=== PATIENT | male | born 1955 | race Caucasian/White ===

== ENCOUNTER 2017-03-23 16:23 | Emergency (ER) | payer BC ==
[2017-03-23] MEDS ORDERED: Albuterol/Ipratropium NEB.SOL* Albuterol 2.5 MG/Ipratropium 0.5 MG 3 ML INH ONE (17:44)
[2017-03-23] MEDS ORDERED: predniSONE TAB* 20 MG PO ONE (17:44)
--- NOTE | 2017-03-23 17:45 | UC ---
Respiratory Complaint HPI - History of Current Complaint Chief Complaint: UCRespiratory Stated Complaint: UPPER RESPIRATORY COMPLAINT Time Seen by Provider: 03/23/17 17:36 - Allergies/Home Medications Allergies/Adverse Reactions: Allergies Allergy/AdvReac Type Severity Reaction Status Date / Time Tetracycline Allergy See Comment Verified 03/23/17 16:45 Home Medications: Home Medications Acetylcysteine INHALATION KESHIA* [Mucomyst INHALATION KESHIA*] 10 % QPM 03/23/17 [ History Confirmed 03/23/17] Albuterol/Ipratropium NEB.KESHIA* [Duoneb (Albuterol 2.5 MG/Ipratropium 0.5 MG)] 1 inh QPM 03/23/17 [History Confirmed 03/23/17] Aspirin EC Low Dose* [Ecotrin EC Low Dose 81 MG*] 1 tab QAM 03/23/17 [History Confirmed 03/23/17] Carvedilol TAB* [Coreg TAB*] 1 tab BID 03/23/17 [History Confirmed 03/23/17] Clopidogrel TAB* [Plavix TAB*] 75 mg PO QAM 03/23/17 [History Confirmed 03/23/17 ] Fluticasone-Salmeterol 250-50* [Advair Diskus 250-50*] 1 puff QAM 03/23/17 [ History Confirmed 03/23/17] Hydrochlorothiazide TAB* [Hydrodiuril TAB*] 25 mg PO QAM 03/23/17 [History Confirmed 03/23/17] Montelukast Sodium TAB* [Singulair TAB*] 10 mg PO QAM 03/23/17 [History Confirmed 03/23/17] Oxygen 2 PRN 03/23/17 [History] Pravastatin (NF) [Pravachol (NF)] 1 tab QPM 03/23/17 [History Confirmed 03/23/17 ] Roflumilast [Daliresp] 1 tab QPM 03/23/17 [History Confirmed 03/23/17] Sucralfate [Carafate] 1 gm QID 03/23/17 [History Confirmed 03/23/17] Tiotropium CAP.INH* [Spiriva CAP.INH*] 1 cap QAM 03/23/17 [History Confirmed ] Valsartan 80 mg PO BID 03/23/17 [History Confirmed 03/23/17] amLODIPine TAB* [Norvasc 5 mg TAB*] 10 mg PO DAILY 03/23/17 [History Confirmed 03/23/17] guaiFENesin ER TAB [Mucinex*] 1,200 mg PO BID 03/23/17 [History Confirmed ] PMH/Surg Hx/FS Hx/Imm Hx - Surgical History Surgical History: Yes Surgery Procedure, Year, and Place: Stentsx2. RIGHT facial reconstruction surgery from fall-plate placed - Social History Alcohol Use: None Substance Use Type: None Smoking Status (MU): Former Smoker Type: Cigars - Immunization History Most Recent Influenza Vaccination: NOT YET 2017 Physical Exam Vital Signs: Initial Vital Signs Temp 98.9 F 03/23/17 16:45 Pulse 62 03/23/17 16:45 Resp 25 03/23/17 16:45 BP 139/68 03/23/17 16:45 Pulse Ox 98 03/23/17 16:45 UC Diagnostic Evaluation - Laboratory O2 Sat by Pulse Oximetry: 96
[2017-03-23 18:57] VITALS: BP 128/68
--- NOTE | 2017-03-23 18:59 | RAD ---
INDICATION: 2 weeks of shortness of breath with productive cough COMPARISON: Chest x-ray dated July 10, 2005 TECHNIQUE: PA and lateral views of the chest were obtained. FINDINGS: The clinical research monitor is noted overlying the left upper chest. The heart and mediastinum are normal in size and contour. Linear density at the right lower lung as a morphologic appearance most consistent with atelectasis. The lungs are otherwise lungs are grossly clear. There is no evidence of large pleural effusion. Visualized bones are normal for the patient's age. There is no radiographic evidence of free air beneath the diaphragm IMPRESSION: LINEAR DENSITY AT THE RIGHT LOWER LUNG IS AN APPEARANCE MOST CONSISTENT WITH ATELECTASIS IN THIS OTHERWISE NONACUTE CHEST X-RAY.
== END 2017-03-23 18:58 | disposition home or self-care (01) ==
LOC: UCCORT 16:23
DX: J98.9 Respiratory disorder, unspecified (principal); Z87.891 Personal history of nicotine dependence
CPT/HCPCS: 71020; 99203; A9270-GY; G0463; J7512

== ENCOUNTER 2017-10-11 07:15 | Emergency (ER) | payer BC ==
[2017-10-11 07:35] VITALS: BP 122/65
--- NOTE | 2017-10-11 07:47 | UC ---
Respiratory Complaint HPI - HPI Summary HPI Summary: 61 yo male with cough x 1 week worse past day or two fever/chills and SOB no n/v/d no nasal congestion hx COPD uses O2 prn - History of Current Complaint Chief Complaint: UCRespiratory Stated Complaint: FEVER, COUGH, SOB Time Seen by Provider: 10/11/17 07:39 Hx Obtained From: Patient Onset/Duration: Sudden Onset Timing: Constant Severity Initially: Mild Severity Currently: Moderate Pain Intensity: 4 Pain Scale Used: 0-10 Numeric Character: Cough: Productive Aggravating Factors: Nothing Associated Signs And Symptoms: Positive: Dyspnea, Fever, Chills - Allergies/Home Medications Allergies/Adverse Reactions: Allergies Allergy/AdvReac Type Severity Reaction Status Date / Time Tetracyclines Allergy Anaphylatic Verified 10/11/17 07:28 Shock Home Medications: Home Medications Arformoterol (NF) [Brovana(NF)] 15 mcg INH BID 10/11/17 [History Confirmed 10/11] Budesonide NEB* [Pulmicort NEB*] 0.5 mg INH BID 10/11/17 [History Confirmed 06/18] Ipratropium 0.5MG/2.5ML NEB* [Atrovent 0.5 MG NEB.KESHIA*] 0.5 mg INH Q6H PRN 10/11 [History Confirmed 10/11/17] Pantoprazole TAB (NF) [Protonix TAB (NF)] 20 mg PO DAILY 10/11/17 [History Confirmed 10/11/17] Psyllium Husk [Metamucil] 2 tab PO DAILY 10/11/17 [History Confirmed 10/11/17] Sodium Chloride For Inhalation [Hyper-Sony] 4 ml IH DAILY 10/11/17 [History Confirmed 10/11/17] Trazodone HCl 50 mg PO DAILY 10/11/17 [History Confirmed 10/11/17] PMH/Surg Hx/FS Hx/Imm Hx Previously Healthy: Yes Cardiovascular History: Cardiac Disease, Myocardial Infarction Respiratory History: COPD, Bronchitis, Pneumonia - Surgical History Surgical History: Yes Surgery Procedure, Year, and Place: Stentsx2. RIGHT facial reconstruction surgery from fall-plate placed - Family History Known Family History: Positive: Hypertension - Social History Alcohol Use: None Substance Use Type: None Smoking Status (MU): Current Some Day Smoker Type: Cigars Amount Used/How Often: occasional use - Immunization History Most Recent Influenza Vaccination: NOT YET 2017 Review of Systems Constitutional: Fever, Chills, Fatigue Skin: Negative Eyes: Negative ENT: Negative Respiratory: Shortness Of Breath, Cough Cardiovascular: Negative Gastrointestinal: Negative Genitourinary: Negative Motor: Negative Neurovascular: Negative Musculoskeletal: Negative Neurological: Negative Psychological: Negative Is Patient Immunocompromised?: No All Other Systems Reviewed And Are Negative: Yes Physical Exam Triage Information Reviewed: Yes Appearance: Well-Appearing, No Pain Distress, Well-Nourished Vital Signs: Initial Vital Signs Temp 98.7 F 10/11/17 07:29 Pulse 68 10/11/17 07:29 Resp 20 10/11/17 07:29 BP 122/65 10/11/17 07:29 Pulse Ox 95 10/11/17 07:29 Vital Signs Reviewed: Yes Eyes: Positive: Conjunctiva Clear ENT: Positive: Hearing grossly normal. Negative: Nasal congestion, Nasal drainage, Trismus, Muffled voice, Hoarse voice Neck: Positive: Supple, Nontender, No Lymphadenopathy Respiratory: Positive: No respiratory distress, No accessory muscle use, Rhonchi , Wheezing Cardiovascular: Positive: RRR, No Murmur Musculoskeletal: Positive: ROM Intact, No Edema Neurological: Positive: Alert Psychological Exam: Normal Skin Exam: Normal UC Diagnostic Evaluation - Laboratory O2 Sat by Pulse Oximetry: 95 - normal - Radiology Xray Interpretation: Positive (See Comments) - 1. THERE HAS BEEN PROGRESSIVE ATELECTASIS OF THE RIGHT MIDDLE LOBE, NOW WITH COMPLETE Radiology Interpretation Completed By: Radiologist Re-Evaluation - Re-Evaluation First Eval Re-Evaluation Time: 08:20 Change: Unchanged Respiratory Course/Dx - Course Course Of Treatment: pt advised of or radiologists recommendation. he declined transfer to ER. he states he will call his pulmonaligist to see if they will do a bronch or CT with contrast. Aware this may be due to CA - Differential Dx/Diagnosis Provider Diagnoses: complete atelectasis of RML. bronchospasm Discharge - Sign-Out/Discharge Documenting (check all that apply): Discharge - Discharge Plan Condition: Stable Disposition: HOME Prescriptions: Amoxicillin/Clavulanate TAB* [Augmentin TAB 875*] 875 mg PO BID #14 tab predniSONE [Deltasone] 40 mg PO DAILY #10 tab Patient Education Materials: Bronchospasm (ED), Atelectasis (ED) Forms: *Work Release Referrals: Non Staff,Doctor [Primary Care Provider] - Additional Instructions: contact your claim specialist today your xr reading is below: 1. THERE HAS BEEN PROGRESSIVE ATELECTASIS OF THE RIGHT MIDDLE LOBE, NOW WITH COMPLETE ATELECTASIS OF THE RIGHT MIDDLE LOBE. CONSIDER FURTHER EVALUATION WITH CONTRAST- ENHANCED CHEST TO EXCLUDE OBSTRUCTING LESION. 2. COPD - Billing Disposition and Condition Condition: STABLE Disposition: HOME
[2017-10-11] MEDS ORDERED: Albuterol 2.5 MG/3 ML NEB.SOL* (0.083%) INH ONE (07:56)
[2017-10-11] MEDS ORDERED: Ipratropium 0.5MG/2.5ML NEB* 0.5 MG/2.5 ML NEB.SOLN INH ONE (07:56)
--- NOTE | 2017-10-11 08:05 | RAD ---
HISTORY: Cough, fever COMPARISONS: March 27, 2017 VIEWS: 4: Frontal dual-energy and lateral views of the chest. FINDINGS: CARDIOMEDIASTINAL SILHOUETTE: The coronary stent is noted. YOAN: The yoan are normal. PLEURA: The costophrenic angles are sharp. No pleural abnormalities are noted. LUNG PARENCHYMA: There is volume loss in opacification of the right middle lobe. There is hyperinflation. ABDOMEN: The upper abdomen is clear. There is no subphrenic gas. BONES AND SOFT TISSUES: No bone or soft tissue abnormalities are noted. OTHER: None. IMPRESSION: 1. THERE HAS BEEN PROGRESSIVE ATELECTASIS OF THE RIGHT MIDDLE LOBE, NOW WITH COMPLETE ATELECTASIS OF THE RIGHT MIDDLE LOBE. CONSIDER FURTHER EVALUATION WITH CONTRAST-ENHANCED CHEST TO EXCLUDE OBSTRUCTING LESION. 2. COPD.
== END 2017-10-11 08:40 | disposition home or self-care (01) ==
LOC: UCCORT 07:15
DX: J98.11 Atelectasis (principal); J98.01 Acute bronchospasm; J44.9 Chronic obstructive pulmonary disease, unspecified; F17.290 Nicotine dependence, other tobacco product, uncomplicated; Z88.3 Allergy status to other anti-infective agents
CPT/HCPCS: 71046; 99212; G0463

== ENCOUNTER 2018-04-27 17:51 | Emergency (ER) | payer BC ==
[2018-04-27 18:34] VITALS: BP 135/64
--- NOTE | 2018-04-27 18:53 | UC ---
Ear Complaint HPI - HPI Summary HPI Summary: C/O left ear pain since Sunday. Gradually getting worse. Pain radiating from ear down into the cheek. - History of Current Complaint Chief Complaint: UCEar Stated Complaint: EAR PAIN Time Seen by Provider: 04/27/18 18:43 Hx Obtained From: Patient Onset/Duration: Gradual Onset, Lasting Days - 4 Severity Initially: Mild Severity Currently: Severe Pain Intensity: 9 Aggravating Factors: Other - chewing. Associated Signs/Symptoms: Positive: Hearing Loss Related History: Seasonal Allergies - Allergies/Home Medications Allergies/Adverse Reactions: Allergies Allergy/AdvReac Type Severity Reaction Status Date / Time Tetracyclines Allergy Anaphylatic Verified 03/10/18 07:52 Shock Home Medications: Home Medications Moxifloxacin HCl 400 mg PO DAILY 04/27/18 [History Confirmed 04/27/18] PMH/Surg Hx/FS Hx/Imm Hx Respiratory History: COPD - Surgical History Surgical History: Yes Surgery Procedure, Year, and Place: Stentsx2. RIGHT facial reconstruction surgery from fall-plate placed. RIGHT KNEE SURGERY - Family History Known Family History: Positive: Cardiac Disease, Hypertension, Respiratory Disease - Social History Occupation: Employed Full-time Lives: With Family Alcohol Use: None Substance Use Type: None Smoking Status (MU): Current Some Day Smoker Type: Cigars Amount Used/How Often: occasional use Have You Smoked in the Last Year: Yes Cessation Counseling: Patient Advised to Stop - Immunization History Most Recent Influenza Vaccination: NOT YET 2017 Review of Systems Constitutional: Chills ENT: Ear Ache Respiratory: Shortness Of Breath, Cough Is Patient Immunocompromised?: No All Other Systems Reviewed And Are Negative: Yes Physical Exam Triage Information Reviewed: Yes Appearance: No Pain Distress, Well-Nourished, Ill-Appearing Vital Signs: Initial Vital Signs Temp 98.2 F 04/27/18 18:30 Pulse 73 04/27/18 18:30 Resp 18 04/27/18 18:30 BP 135/64 04/27/18 18:30 Pulse Ox 96 04/27/18 18:30 Vital Signs Reviewed: Yes Eyes: Positive: Conjunctiva Inflamed ENT: Positive: Pharynx normal, TMs normal, Other - Left TMJ very tender. Worse with opening and closing mouth Neck exam: Normal Respiratory: Positive: Wheezing - Diffuse insp/exp wheezing. Prolonged exp phase Cardiovascular Exam: Normal Musculoskeletal Exam: Normal Neurological Exam: Normal Psychological Exam: Normal Skin Exam: Normal Ear Complaint Course/Dx - Differential Dx/Diagnosis Differential Diagnosis/HQI/PQRI: Cerumen Impaction, Otitis Externa, Otitis Media , TMJ Syndrome Provider Diagnoses: TMJ syndrome pain. COPD with acute exacerbation Discharge - Sign-Out/Discharge Documenting (check all that apply): Patient Departure All imaging exams completed and their final reports reviewed: No Studies - Discharge Plan Condition: Stable Disposition: HOME Prescriptions: predniSONE TAB* [Deltasone 20 MG TAB*] 60 mg PO DAILY #18 tab Patient Education Materials: Temporomandibular Disorder (ED), COPD (Chronic Obstructive Pulmonary Disease) (ED), Prednisone (By mouth) Referrals: Luca Thurman DO [Primary Care Provider] - - Billing Disposition and Condition Condition: STABLE Disposition: Home
== END 2018-04-27 19:25 | disposition home or self-care (01) ==
LOC: UCCORT 17:51
DX: M26.69 Other specified disorders of temporomandibular joint (principal); J44.1 Chronic obstructive pulmonary disease with (acute) exacerbation; F17.200 Nicotine dependence, unspecified, uncomplicated; Z88.1 Allergy status to other antibiotic agents
CPT/HCPCS: 99212; G0463

== ENCOUNTER 2019-03-06 09:26 | Emergency (ER) | payer BC ==
[2019-03-06 10:48] VITALS: BP 126/57
--- NOTE | 2019-03-06 11:02 | UC ---
Skin Complaint HPI - HPI Summary HPI Summary: Pt presents with c/o left skin redness and tenderness to right mid anterior knee. Pt states that he hit his right freitas against a hard, plastic bucket and had a small cut as a result. Pt states that wound is getting more red and tender since onset of injury. Pt is a heavy everyday smoker, and has CAD and is taking multiple blood thinners. - History of Current Complaint Chief Complaint: UCLowerExtremity Time Seen by Provider: 03/06/19 10:43 Stated Complaint: RIGHT LEG CONCERN Hx Obtained From: Patient Onset/Duration: Gradual Onset, Lasting Days, Still Present, Worse Since - osnet Skin Exposure Onset/Duration: Days Ago Timing: Constant Onset Severity: Mild Current Severity: Moderate Pain Intensity: 9 Location: Discrete - right mid anterior freitas Character: Pain, Redness, Painful Aggravating Factor(s): Touch Alleviating Factor(s): Nothing Associated Signs & Symptoms: Positive: Tenderness Related History: Trauma - mild trauma - Allergy/Home Medications Allergies/Adverse Reactions: Allergies Allergy/AdvReac Type Severity Reaction Status Date / Time Tetracyclines Allergy Anaphylatic Verified 03/06/19 10:26 Shock Home Medications: Home Medications Ipratropium HFA INHALER(NF) [Atrovent Hfa Inhaler(NF)] 2 puff INH Q6H 03/06/19 [ History Confirmed 03/06/19] Losartan TAB* [Cozaar TAB*] 50 mg PO DAILY 03/06/19 [History Confirmed 03/06/19] Spiriva HANDIHALER DEVICE (NF) [Tiotropium Inhaler DEVICE (NF)] 2 inh INH BID [History Confirmed 03/06/19] Warfarin TAB(*) [Coumadin TAB(*)] 7.5 mg PO DAILY 03/06/19 [History Confirmed ] PMH/Surg Hx/FS Hx/Imm Hx Previously Healthy: Yes Cardiovascular History: Cardiac Disease, Hypertension Respiratory History: COPD - Surgical History Surgical History: Yes Surgery Procedure, Year, and Place: Stentsx2. RIGHT facial reconstruction surgery from fall-plate placed. RIGHT KNEE SURGERY - Family History Known Family History: Positive: Cardiac Disease, Hypertension, Respiratory Disease - Social History Occupation: Employed Full-time Lives: With Family Alcohol Use: None Substance Use Type: None Smoking Status (MU): Current Some Day Smoker Type: Cigars Amount Used/How Often: occasional use Have You Smoked in the Last Year: Yes - Immunization History Most Recent Influenza Vaccination: NOT YET 2017 Review of Systems All Other Systems Reviewed And Are Negative: Yes Constitutional: Positive: Negative Skin: Positive: Other - erythema and dried scab Eyes: Positive: Negative ENT: Positive: Negative Respiratory: Positive: Negative Cardiovascular: Positive: Negative Gastrointestinal: Positive: Negative Genitourinary: Positive: Negative Motor: Positive: Negative Neurovascular: Positive: Negative Musculoskeletal: Positive: Myalgia Neurological: Positive: Negative Psychological: Positive: Negative Is Patient Immunocompromised?: No Physical Exam Triage Information Reviewed: Yes Appearance: Well-Appearing Vital Signs: Initial Vital Signs Temp 97.8 F 03/06/19 10:39 Pulse 61 03/06/19 10:39 Resp 17 03/06/19 10:39 BP 126/57 03/06/19 10:39 Pulse Ox 96 03/06/19 10:39 Vital Signs Reviewed: Yes Eye Exam: Normal ENT Exam: Normal Dental Exam: Normal Respiratory: Positive: No respiratory distress Musculoskeletal: Positive: Edema @ - slight edema to right mid Neurological Exam: Normal Psychological Exam: Normal Skin Exam: Other - dried scab on right mid anterior freitas, ~ 7 cm erythematous area encircling dried scab that pt states is tender with palpation. Pt also has small marble size reddened area on plantar aspect of left foot at inner arch or left foot that is soft, moveable no drainage Course/Dx - Differential Diagnoses - Skin Complaint Differential Diagnoses: Cellulitis, Impetigo - Diagnoses Provider Diagnosis: Cellulitis of right lower leg Discharge ED - Sign-Out/Discharge Documenting (check all that apply): Patient Departure All imaging exams completed and their final reports reviewed: No Studies - Discharge Plan Condition: Stable Disposition: HOME Prescriptions: Cephalexin CAP* [Keflex 500 CAP*] 500 mg PO Q6H #40 cap Patient Education Materials: Wound Infection (ED), Cellulitis (ED) Referrals: Luca Thurman DO [Primary Care Provider] - As Soon As Possible Additional Instructions: Please follow up with your PCP for further health management. If your symptoms do not improve, please seek care at the closest emergency room as soon as possible. Recommended lotion for your dry skin are the generic equivalent of Cetaphil or Aquaphor. - Billing Disposition and Condition Condition: STABLE Disposition: Home
== END 2019-03-06 11:26 | disposition home or self-care (01) ==
LOC: UCCORT 09:26
DX: L03.115 Cellulitis of right lower limb (principal); I25.10 Atherosclerotic heart disease of native coronary artery without angina pectoris; Z79.01 Long term (current) use of anticoagulants; I10 Essential (primary) hypertension; J44.9 Chronic obstructive pulmonary disease, unspecified; F17.290 Nicotine dependence, other tobacco product, uncomplicated
CPT/HCPCS: 99212; G0463